=== PATIENT | male | born 1965 | race African-American/Black ===

== ENCOUNTER 2020-07-07 04:54 | Inpatient (IN) | payer OTHER ==
[~2020-07-07] VITALS: Ht 165.1 cm; Wt 63.5 kg
[2020-07-07] VITALS (8 sets, daily range): BP systolic 156–220; BP diastolic 97–130
--- NOTE | ~2020-07-07 | EMS ---
[place] [id number] EMS Patient Care Report Name: KOBY MODI Room #: REG MSonja#: [id number] Admission: 07/07/20 Attend Phys: Discharge: Date of : 67 Report #: [id number] THIS REPORT FOR: //name// Report Transmitted: 07/07/2020 05:22 EMS Care Summary [place], [place]/[facility] Incident [id number] @ 07/07/2020 04:19 [address] [place] [address] Patient KOBY MODI Male, 55 Years 1965 Patient Address [address] [place] [address] Patient History Asthma,Chronic Obstructive Pulmonary Disease (COPD),None Reported, Patient Allergies No known allergies, Patient Medications None Reported, Albuterol, Chief Complaint SOA Disposition Transported No Lights/[place] Dispatch Reason Breathing Problem Transported To [facility] Narrative PT STATES THAT PT CANNOT BREATH. PT STATES THAT PT HAS CHEST PAIN ON SCENE. WHILE EMS WAS TRYING TO GET A 12-LEAD ACCOMPLISHED PT KEPT YELLING THAT PT NEEDED TO BE TAKEN TO THE ER. PT HAD SHALLOW BREATHS. PT HAD AUDIBLE WHEEZES. PT SPOEK IN 4 TO 5 WORD SENTENCES. AND KEPT TAKING WHEN [place] [address] EMS Patient Care Report Name: KOBY MODI Room #: REG ER Malorie#: [id number] Admission: 07/07/20 Attend Phys: Discharge: Date of : 67 Report #: [id number] IN HIS ALBUTEROL TREATMENT. PT PT NEVER WAS ABLE TO ANSWER THE CHEST PAIN QUESTIONS BECAUSE HE WAS TO BUSY TELLING EMS HE COULDN'T BREATH. PT HAS NO OTHER COMPLAINTS. PT WAS FOUND SITTING IN A FULL DEJESUS POSITION WITH OXYGEN ON. PT SPOKE IN F3 TO 4 WORD SENTENCES. EVEN THOUGH PT HAD THE ALBUTEROL AND ATROVENT TREATMENTS PT WOULD PULL IT OFF CONSTANLY AND ALSO PULLED THE CPAP OFF THAT EMS TRIED TO PUT ON PT. PT IS ABLE TO STAND AND PIVOT WITH EMS ASSISTANCE. PT HAS NO OTHER OBVIOUS ABNORMALITIES. Initial Vitals @04:41P: 151, @04:39P: 201, @04:34P: 110,CO: 0,SpO2: 97, @04:49P: 119,SpO2: 98, @04:41P: 120, @04:43P: 117, @04:41P: 118,R: 26,BP: 195/167,Pain: 0/10,GCS: 15,Revised Trauma: 12, @04:34P: 139,R: 24,BP: 52/19,Pain: 0/10,GCS: 15,SpO2: 98,Revised Trauma: 10, @04:44P: 120,BP: 232/156,SpO2: 100, Assessments @04:32MENTAL:Person Oriented,Time Oriented,Event Oriented,Place Oriented,SKIN:HEENT:Eyes: Left Pupil: 4-mm,Eyes: Right Pupil: 4-mm,Head/Face: No Abnormalities,Neck/Airway: No Abnormalities,LUNG SOUNDS:General: No Abnormalities,ABDOMEN:General: No Abnormalities,PELVIS//GI:EXTREMITIES:Capillary Refill: Right Upper: < 2 Sec,Left Arm: No Abnormalities,Right Arm: No Abnormalities,Left Leg: No Abnormalities,Right Leg: No Abnormalities,PULSE:Radial: 2+ Normal,NEURO: Impression Respiratory disorder Procedures @04:30ALS AssessmentResponse: UnchangedSucceeded@PTAOxygen FlowRate: 15 Device: Non Re-breather Mask (NRB) Response: UnchangedSucceeded@04:31Albuterol - 2.5 Milligrams (mg) - NebulizedResponse: Unchanged@04:313-Lead ECGResponse: UnchangedSucceeded@04:33Atrovent - 0.5 Milligrams (mg) - NebulizedResponse: Unchanged@05:17Saline Lock 10cc (18 ga) Site: Antecubital-LeftResponse: UnchangedSucceeded@05:17Saline Lock 10cc (20 ga) Site: Hand-RightResponse: UnchangedSucceeded@05:18CPAP FlowRate: 15 Response: WorseFailed@05:20Oxygen FlowRate: 15 Device: Non Re-breather Mask (NRB) Response: ImprovedSucceeded@04:4312-Lead ECGResponse: UnchangedSucceeded@04:4112-Lead ECGResponse: UnchangedSucceeded@04:4912-Lead ECGSucceeded@04:3412-Lead ECGSucceeded [address] [address] EMS Patient Care Report Name: KOBY MODI Room #: REG EDWIN [place]#: [id number] Admission: 07/07/20 Attend Phys: Discharge: Date of : 67 Report #: [id number] Timeline REGULATORY COMPLIANCE SPECIALIST,Oxygen FlowRate: 15 Device: Non Re-breather Mask (NRB) Response: UnchangedSucceeded, 04:18,Call Received 04:18,Dispatch Notified 04:19,Dispatched 04:20,En Route 04:29,On Scene 04:29,At Patient 04:30,ALS Assessment,Response: UnchangedSucceeded, 04:31,3-Lead ECG,Response: UnchangedSucceeded, 04:31,Albuterol - 2.5 Milligrams (mg) - Nebulized,Response: Unchanged 04:33,Atrovent - 0.5 Milligrams (mg) - Nebulized,Response: Unchanged 04:34,12-Lead ECG,Succeeded, 04:34,BP: / M,PULSE: 110,RR: R,SPO2: 97 Ox,ETCO2: ,BG: ,PAIN: ,GCS: , 04:34,BP: 52/19 M,PULSE: 139,RR: 24 R,SPO2: 98 Ox,ETCO2: ,BG: ,PAIN: 0,GCS: 15, 04:37,Depart Scene 04:39,BP: / M,PULSE: 201,RR: R,SPO2: Ox,ETCO2: ,BG: ,PAIN: ,GCS: , 04:41,BP: / M,PULSE: 151,RR: R,SPO2: Ox,ETCO2: ,BG: ,PAIN: ,GCS: , 04:41,12-Lead ECG,Response: UnchangedSucceeded, 04:41,BP: / M,PULSE: 120,RR: R,SPO2: Ox,ETCO2: ,BG: ,PAIN: ,GCS: , 04:41,BP: 195/167 M,PULSE: 118,RR: 26 R,SPO2: Ox,ETCO2: ,BG: ,PAIN: 0,GCS: 15, 04:43,12-Lead ECG,Response: UnchangedSucceeded, 04:43,BP: / M,PULSE: 117,RR: R,SPO2: Ox,ETCO2: ,BG: ,PAIN: ,GCS: , 04:44,BP: 232/156 M,PULSE: 120,RR: R,SPO2: 100 Ox,ETCO2: ,BG: ,PAIN: ,GCS: , 04:49,12-Lead ECG,Succeeded, 04:49,BP: / M,PULSE: 119,RR: R,SPO2: 98 Ox,ETCO2: ,BG: ,PAIN: ,GCS: , 04:50,At Destination 05:17,Saline Lock 10cc 18 ga Site: Antecubital-Left,Response: UnchangedSucceeded, 05:17,Saline Lock 10cc 20 ga Site: Hand-Right,Response: UnchangedSucceeded, 05:18,CPAP FlowRate: 15 Response: WorseFailed, 05:20,Oxygen FlowRate: 15 Device: Non Re-breather Mask (NRB) Response: ImprovedSucceeded, 05:26,Call Closed Disclaimer v1.1 Copyright 2020 [employer] This EMS Care Summary contains data elements from the applicable legal record (which may be displayed differently). It is designed to provide pertinent information for the following purposes: continuity of care, clinical quality, and state data reporting. The complete legal record is available to ED staff and administrators of the receiving hospital in [employer] Patient Tracker. All data is provided "as is."
[~2020-07-07 04:54] MED LIST: ALBUTEROL2.5 MG/0.5 INH; BREO ELLIPTA 11 EACH IH; NORVASC5 MG PO; PREDNISONE50 MG PO; PROAIR HFA8.5 GM IH; UNKNOWN BP MED; VENTOLIN HFA 1818 GM INH
[2020-07-07 05:35] LABS: BE(vivo) -5.2 mmol/L (-2 to +3); HCO3 19.7 mmol/L (22.0-26.0); PCO2 36.7 mmHg (35.0-45.0); PO2 144.1 mmHg (80.0-100.0); pH 7.348 (7.360-7.450); sO2 98.8 % (92.0-98.0)
[2020-07-07 05:40] LABS: ABSOLUTE NEUTROPHILS 1.6 thou/uL (1.4-8.2); BASOPHILS 1.6 % (0.0-2.0); EOSINOPHILS 3.7 % (0.0-3.0); HEMATOCRIT 44.4 % (42.0-52.0); HEMOGLOBIN 15.3 gm/dL (14.0-18.0); LYMPHOCYTES 36.5 % (24.0-44.0); MCH 33.1 pg (26.0-34.0); MCHC 34.4 g/dL (28.0-37.0); MCV 96.3 fL (80.0-100.0); MONOCYTES 11.8 % (1.0-8.0); PLATELET COUNT 280 thou/uL (150-400); POLYS 46.4 % (36.0-66.0); RBC 4.61 mil/uL (4.50-6.00); RDW 12.2 % (10.5-14.5); WBC 3.4 thou/uL (4.0-11.0)
[2020-07-07 06:39] LABS: ANION GAP 15 mmol/L (7-16); BUN 11 mg/dL (7-18); CHLORIDE 102 mmol/L (98-107); CO2 22 mmol/L (21-32); CREATININE 1.1 mg/dL (0.7-1.3); GLUCOSE 129 mg/dL (74-106); POTASSIUM 4.3 mmol/L (3.5-5.1); SODIUM 139 mmol/L (136-145)
[2020-07-07 06:49] LABS: MAGNESIUM 1.7 mg/dL (1.8-2.4); TROPONIN-I <0.06 ng/mL (<0.06)
[2020-07-07 08:00] LABS: ALBUMIN 3.7 g/dL (3.4-5.0); DIRECT BILIRUBIN 0.2 mg/dL (<0.1-0.2); TOTAL BILIRUBIN 0.9 mg/dL (0.2-1.0); TOTAL PROTEIN 7.8 g/dL (6.4-8.2)
--- NOTE | 2020-07-07 09:06 | EKG ---
[facility] [place] [address] ELECTROCARDIOGRAM REPORT Name: KOBY MODI Room #: 350-P ADM IN M.R.#: [id number] Admission: 07/07/20 Attend Phys: Cristela Lacey Discharge: Date of : 67 Report #: [id number] THIS REPORT FOR: cc: [facility] - Clinic physician unknown [facility] - Clinic physician unknown Dustin Galvan MD [facility] THIS REPORT FOR: //name// [facility] ED Test Date: 2020-07-07 Test Time: 05:38:05 Pat Name: KOBY MODI Department: Room: 350 Gender: M Milker Machine: luke sheldon : 1965 Requested By: Sreedhar Mitchell Order Number: [id number] MD: Dustin Galvan Measurements Intervals [place] Rate: 91 P: 50 MD: 151 QRS: -1 QRSD: 87 T: 22 QT: 390 QTc: 480 Interpretive Statements Sinus rhythm Early repolarization Left ventricular hypertrophy Borderline prolonged QT interval Baseline wander in lead(s) I Compared to ECG 06/11/2015 11:31:37 No significant changes Electronically Signed On 07-07-2020 9:06:27 CDT by Dustin Galvan [email or web address] <ELECTRONICALLY SIGNED> By: Dustin Galvan MD, [facility] 07/07/20 0906 [id number] Dustin Galvan MD, [facility] /EPI
--- NOTE | 2020-07-07 11:46 | NUR ---
INITIAL ASSESSMENT: JEANNA reviewed chart and spoke with nursing and attending physician. Pt was admitted from home due to dyspnea. Pt placed in Enhanced Isolation to r/o COVID-19. Pt with hx of asthma. Pt is afebrile and on 2L of O2. Pt is on IV steroids. SW placed call to pt's room. Spoke with pt. Introduced role of SW. Pt is alert/orientated x 4. Pt reports he lives at home with family. Prior to admission, pt was indpendent with ADLs. No use of DME for ambulation. Pt has a nebulizer and inhalers at home. Pt was not on O2 prior to admission. Pt goes to the [facility] for primary care. Pt states he has a Gold Card to assist with medications. Unsure of discharge timeframe. Pt states he will be able to get his meds at [facility], if he gets new prescriptions. Health Resource Guide/[facility] of [facility] and prescription discount card left on pt's chart to provide for pt at time of discharge. Should pt need transportation home, contact the subwarehouse supervisor for cab voucher. JEANNA is following to assist as needed with discharge planning.
--- NOTE | 2020-07-07 13:59 | NUR ---
PATIENT ADMITTED TO ROOM AT THIS ITNM. HE IS ALERT ORIENTED X4. STATES HE WILL LIKE TO HAVE A STERIOD FOR HIS LUNGS. STATES HE HAS ALWAYS HAD THAT. HE IS PLEASANT WITH CARE. UP AD STEPH NO DIFFICUTLY NOTED. WILL CONT WITH PLAN OF CARE.
--- NOTE | 2020-07-07 19:46 | NUR ---
1900 ASSUMED CARE OF PT AFTER BEDSIDE REPORT, 193 BASELINE ASSESSMENT COMPLETED, PT AWAKE ALERT ORIENTED ASKING FOR SLEEP MEDS, PAIN MEDS, ANXIETY MEDS, AND BP MEDS WILL CALL HOSPITALIST, STATES PAIN 8/10 TO LEFT ARM IV LAB DRAW SITE FROM ER, WILL CONTINUE NTO MONITOR
[2020-07-08 01:40] VITALS: BP 149/90
[2020-07-08 04:59] VITALS: BP 170/106
[2020-07-08 06:25] VITALS: BP 139/88
[2020-07-08 07:13] VITALS: BP 152/94
[2020-07-08 07:29] LABS: CALCIUM 8.9 mg/dL (8.5-10.1); MAGNESIUM 3.3 mg/dL (1.8-2.4)
[2020-07-08] MEDS ORDERED: LEVOFLOXACIN500 MG PO (09:20)
[2020-07-08] MEDS ORDERED: VENTOLIN HFA 1818 GM INH (09:21)
[2020-07-08] MEDS ORDERED: HYDROCODON-ACE1 EAC7 PO (09:21)
[2020-07-08] MEDS ORDERED: MEDROL DOSPAK21 TA1 PO (09:23)
[2020-07-08 09:24] LABS: AMP/METHAMP Negative (Negative); BARBITURATES Negative (Negative); BENZODIAZEPINES Negative (Negative); COCAINE POSITIVE (Negative); METHADONE Negative (Negative); OPIATES POSITIVE (Negative); PCP Negative (Negative)
[2020-07-08 09:49] VITALS: BP 152/94
--- NOTE | 2020-07-08 10:22 | NUR ---
PT CARE ASSUMED 0700, PT ALERT AND ORIENTED X4, DENIES CHEST PAIN, NAUSEA AND VOMITTING. PT SEEMS ANXIOUS, XANAX GIVEN PER ORDER. PT IS ON ROOM, NO SIGNS OF DISTRESS NOTED. PT DENIES ANY NEEDS AT THE MOMENT, OTHER THAN HER IS READY "GET OUT OF HERE" 0930 DR. MYRICK ON THE FLOOR, PUT IN DISCHARGE ORDERS. PT IV TAKEN OUT. DISCHARGE INSTRUCTION GIVEN TO PT. EDUCATIUON GIVEN ABOUT SUBSTANCE ABUSE. 1020 PT STATED HE SOUNDS WHEEZY AND WANTED A BREATHING TREATMENT BEFORE DISCHARGE , RT CALLED AND TX GIVEN. PT WAITING FOR HIS RIDE
--- NOTE | 2020-07-08 11:44 | EKG ---
[facility] [place] [address] ELECTROCARDIOGRAM REPORT Name: KOBY MODI Room #: 350-P ADM IN M.R.#: [id number] Admission: 07/07/20 Attend Phys: Cristela Lacey Discharge: Date of : 67 Report #: [id number] THIS REPORT FOR: cc: [facility] - Clinic physician unknown [facility] - Clinic physician unknown Dustin Galvan MD [facility] ~ THIS REPORT FOR: //name// [facility] Test Date: 2020-07-08 Test Time: 01:16:47 Pat Name: KOBY MODI Department: Room: 350 P Gender: M Steel Manager: AMADO : 1965 Requested By: Cristela Lacey Order Number: [id number] MD: Dustin Galvan Measurements Intervals [place] Rate: 90 P: 8 W[place]: 147 QRS: -14 QRSD: 82 T: 12 QT: 403 QTc: 493 Interpretive Statements Sinus rhythm Early repolarization Compared to ECG 07/07/2020 05:38:05 No significant change was found Electronically Signed On 07-08-2020 11:43:54 CDT by Dustin Galvan [email or web address] <ELECTRONICALLY SIGNED> By: Dustin Galvan MD, [facility] 07/08/20 1143 [id number] [id number] Dustin Galvan MD, [facility] /EPI
== END 2020-07-08 11:56 | disposition home or self-care (01) | DRG 202 ==
LOC: ER 04:54 → 3W 07:59 → EROBS 07:59 → 3W 08:42
PROVIDERS: Emergency Medicine; Nurse Practitioner Family; ADMIT Hospitalist; ATTEND Hospitalist
DX: J45.901 Unspecified asthma with (acute) exacerbation (principal); E87.2 Acidosis; I10 Essential (primary) hypertension; F17.210 Nicotine dependence, cigarettes, uncomplicated; Z20.828 Contact with and (suspected) exposure to other viral communicable diseases; Z79.891 Long term (current) use of opiate analgesic; Z79.899 Other long term (current) drug therapy
CPT/HCPCS: 10080